=== PATIENT | female | born 1950 | race African-American/Black ===

== ENCOUNTER 2018-05-22 06:54 | Day surgery (SDC) | payer MEDICARE ==
[~2018-05-22 06:54] MED LIST: CEFAZOLIN 2 Gram 2 GM/50 ML BAG IVPB ONE; CELECOXIB 100 MG CAPSULE PO ONE; FAMOTIDINE 20MG TABLET PO ONE; MECLIZINE 25 MG TABLET PO ONE; METOCLOPRAMIDE 10 MG TABLET PO ONE; VANCOMYCIN HCL 1,000 MG in DEXTROSE 5 % IN WATER 250 ML IVPB ONE
[2018-05-22] MEDS ORDERED: BUPIVACAINE 0.5% W/EPI MPF 30 ML VIAL IVP ONE (06:55)
[2018-05-22] MEDS ORDERED: TRANEXAMIC ACID 1,000 MG/10 ML ML IV ONE (06:55)
[2018-05-22] MEDS ORDERED: ONDANSETRON HCL IV 4 MG/2 ML VIAL IVP ONE (06:55)
[2018-05-22] MEDS ORDERED: HYDROMORPHONE HCL 2 MG/ML VIAL IV ONE ×2 (06:55)
[2018-05-22] MEDS ORDERED: DEXAMETHASONE 4 MG/ML 1ML VIAL IVP ONE ×2 (06:55)
[2018-05-22] MEDS ORDERED: PROPOFOL 10 MG/ML VIAL IV ONE (06:55)
[2018-05-22] MEDS ORDERED: LABETALOL HCL 5MG/ML, 20ML VIAL IV ONE (06:55)
[2018-05-22] MEDS ORDERED: DESFLURANE 240 ML BTL INH ONE (06:55)
[2018-05-22] MEDS ORDERED: ROPIVACAINE HCL (NAROPIN) /PF 5MG/ML 20ML VIAL IV ONE (06:55)
[2018-05-22] MEDS ORDERED: FENTANYL PF 100MCG/2ML VIAL IV ONE (06:55)
[2018-05-22] MEDS ORDERED: HYDRALAZINE 20MG/ML VIAL IV ONE (06:55)
[2018-05-22] MEDS ORDERED: MIDAZOLAM HCL 2MG/2ML VIAL IV ONE (06:55)
[2018-05-22 07:48] LABS: ABO GROUP O; ANTIBODY SCREEN NEGATIVE (NEGATIVE); RH TYPE POSITIVE
[2018-05-22] MEDS ORDERED: ACETAMINOPHEN W/ CODEINE 300MG/60MG TABLET PO PRN ×2 (11:46)
[2018-05-22] MEDS ORDERED: KETOROLAC 30 MG/ML VIAL IVP PRN (11:46)
[2018-05-22] MEDS ORDERED: HYDROCODONE/APAP 10/325 TABLET PO PRN (11:46)
[2018-05-22] MEDS ORDERED: ACETAMINOPHEN 325 MG TAB PO PRN (11:46)
[2018-05-22] MEDS ORDERED: OXYCODONE HCL 5 MG TABLET PO PRN (11:46)
[2018-05-22] MEDS ORDERED: NALOXONE 0.4 MG/1 ML VIAL IVP PRN (11:46)
[2018-05-22] MEDS ORDERED: DIPHENHYDRAMINE HCL 25 MG CAPSULE PO PRN (11:46)
[2018-05-22] MEDS ORDERED: BISACODYL 10 MG SUPP RC PRN (11:46)
[2018-05-22] MEDS ORDERED: MAGNESIUM HYDROXIDE 30 ML UDC PO PRN (11:46)
[2018-05-22] MEDS ORDERED: AL HYDROX/MAG HYDROX 30ML UD PO PRN (11:46)
[2018-05-22] MEDS ORDERED: TRAMADOL HCL 50 MG TABLET PO PRN (11:46)
[2018-05-22] MEDS ORDERED: CEFTRIAXONE 1GM/50ML BAG 1 GM/50 ML BAG IVPB SCH (15:00)
--- NOTE | 2018-05-22 15:04 | Rehab Evaluation ---
Patient Information - Patient Information Diagnosis: L knee OA Ordered Treatment: PT Evaluate and Treat Status: Initial Evaluation Surgery: Yes (L TKA) Date of Surgery: 05/22/18 Past Medical/Surgical Hx: PAST MEDICAL/SURGICAL HISTORY Past Surgical History right shoulder RTKA 15 yrs ago hyst lumbar back sx cage screws c scopes right breast lumpectomy and axillary dissection several foot sx's bilat breast reduction PMH - Respiratory Hx Respiratory Disorders Yes Hx Bronchitis Yes: Hx Pneumonia Yes: 2001 PMH - Cardiovascular Hx Cardiovascular Disorders Yes Hx Hypertension Yes: on meds good control Hx Irregular Heartbeat Yes: 2001 Hx Heart Murmur Yes: leaky valve sees cardio every year Exercise Tolerance Good Hx of Migraines Yes: caused by dehydration, weather changes PMH - Neuro Hx Neurological Disorders Yes PMH - GI Hx Gastrointestinal Disorders Yes Hx Gastroesophageal Reflux Yes: on meds with good control PMH - Hx Genitourinary Disorders No PMH - Endocrine Hx Endocrine Disorders Yes Hx Thyroid Disease Yes PMH - Musculoskeletal Hx Musculoskeletal Disorders Yes Hx Arthritis Yes: everywhere PMH - Psych Hx Psychiatric Problems No PMH - Hematology/Oncology Hx Hematology/Oncology Yes Disorders Hx Anemia Yes: on and off Hx Bruising Yes: bruises easily Hx Cancer Yes: breast right axillary dissection 1993 Hx Chemotherapy Yes Hx Radiation Therapy Yes Hx Blood Transfusion Reaction No Premorbid Status: Detail (Patient was previously IND with all mobility and transfers.) Social History: Detail (Patient lives in a 1 story home with her spouse. There are 2 stairs to enter the home with no hand rails. The patient has a walk in shower with one grab bar, and an elevated toilet. The patient owns a front wheeled walker, a cane, and a shower bench.) Precautions: [place], Fall, Other (WBAT on L LE.) - Time With Patient Total Time Spent With Patient (Min): 30 Treatment Procedures: Detail (Initial evaluation, gait training, exercise education.) Subjective Information - Subjective Information Per Patient (Patient was lying supine in bed upon arrival with no complaints of pain.) Objective Data - Pain Pain Present: No - Mental Status Patient Orientation: Oriented x3 - Visual Perception Appears within normal limits for therapeutic activities - ROM Not within normal limits (Patient L knee ROM is limited due to status post surgery.) - Strength/Tone Not within normal limits (Patients strength was functional during ambulation. Patient has limited L knee strength due to status post surgery.) - Bed Mobility Independent (Patient was IND with supine to and from sit transfer.) - Transfers Independent (Patient was IND with sit to stand transfer. Patient required verbal cues for hand placement during sit to stand.) - Balance Balance Sitting: Good Balance Standing: Good - Sensation Intact - Gait Detail (Patient ambulated approx. 200' using a front wheeled walker and supervision for safety. WBAT on L LE.) Therapy Assessment - Therapy Assessment Detail (Evaluation complexity low due to stable condition. Patient was IND with all mobility and transfers. Feel patient will progress well with continued PT. Patient was left lying supine in bed with call light in reach.) Patient Education - Patient Education Teaching Topic: Exercise/Activity (ankle pumps, heel slides, SLR, glut sets, quad sets, and hamstring sets.) Response: Return Demonstration, Verbalize Understanding Teaching Method: Discussion, Demonstration Teaching Recipient: Patient Barriers To Learning: Age Related Problem List - Problem List Physical Therapy Problem List: Detail (1) L knee ROM 2) L knee strength) Goals - Goals Physical Therapy Goals: 1) Patient will ambulate a flight of 3 stairs using a folded walker, hand rail, and supervision with proper technique. Prognosis - Prognosis Good Plan - Plan Physical Therapy Plan: Patient will be seen 1-2 more times to assess stair technique. Patient will then be discharged to home PT.
[2018-05-22] MEDS ORDERED: RANITIDINE HCL 150 MG TABLET PO PRN (15:16)
[2018-05-22] MEDS: ONDANSETRON 4 MG ODT TABLET SL PRN (15:19)
[2018-05-22] MEDS: POTASSIUM CHLORIDE/D5-0.9%NACL 20 MEQ/1,000 ML BAG IV SCH ×2 (15:19→22:36)
[2018-05-22] MEDS: LOSARTAN POTASSIUM 100 MG TABLET PO SCH (17:18)
[2018-05-22] MEDS: CEFAZOLIN 2 Gram 2 GM/50 ML BAG IVPB SCH (17:18)
[2018-05-22] MEDS: METOCLOPRAMIDE HCL 10 MG/2 ML VIAL IVP PRN (17:49)
[2018-05-22] MEDS: HYDROCODONE/APAP 10/325 TABLET PO PRN (20:52)
[2018-05-22] MEDS ORDERED: SIMVASTATIN 20 MG TABLET PO SCH (22:00)
[2018-05-22] MEDS ORDERED: PANTOPRAZOLE SODIUM 40 MG TABLET PO SCH (22:00)
[2018-05-22] MEDS ORDERED: ASPIRIN 81 MG TABEC PO SCH (22:00)
[2018-05-22] MEDS ORDERED: CALCIUM CARBONATE 500 MG TAB.CHEW PO PRN (22:17)
[2018-05-23] MEDS: FERROUS SULFATE 325 MG TAB PO SCH ×2 (00:13→11:31)
[2018-05-23] MEDS: DOCUSATE SODIUM 100 MG CAPSULE PO SCH ×2 (00:13→11:31)
[2018-05-23] MEDS: ONDANSETRON 4 MG ODT TABLET SL PRN ×3 (01:02→11:32)
[2018-05-23] MEDS: CEFAZOLIN 2 Gram 2 GM/50 ML BAG IVPB SCH ×2 (01:04→08:34)
[2018-05-23] MEDS: HYDROCODONE/APAP 10/325 TABLET PO PRN ×3 (02:43→11:35)
[2018-05-23 06:54] LABS: GRAN % 80.2 % (47-80); HEMATOCRIT 31.6 % (35.0-47.0); HEMOGLOBIN 9.9 gm/dl (11.6-16.0); LYMPH % 11.8 % (16-45); MEAN CELL VOLUME 96.6 fl (81-97); MEAN CORPUSCULAR HGB CONC 31.3 g/dl (32-36); PLATELET COUNT 303 K/uL (130-400); RED BLOOD COUNT 3.27 M/uL (3.80-5.40); RED CELL DISTRIBUTION WIDTH 13.1 % (11.5-14.5); WHITE BLOOD COUNT W/O DIFF 10.3 K/uL (4.2-12.2)
[2018-05-23 06:59] LABS: MEAN CORPUSCULAR HEMOGLOBIN 30.2 pg (27-33)
[2018-05-23] MEDS ORDERED: LEVOTHYROXINE SODIUM 25 MCG TABLET PO SCH (07:00)
[2018-05-23] MEDS: POTASSIUM CHLORIDE/D5-0.9%NACL 20 MEQ/1,000 ML BAG IV SCH (07:58)
[2018-05-23] MEDS: METOCLOPRAMIDE HCL 10 MG/2 ML VIAL IVP PRN (08:28)
[2018-05-23] MEDS ORDERED: RIVAROXABAN 10 MG TABLET PO SCH (10:00)
--- NOTE | 2018-05-23 11:23 | Physical Therapy Tx Note ---
Physical Therapy Tx Note - Treatment Note Tolerated: Good Total Time Spent With Patient: 15 Physical Therapy Tx Note: Detail (Patient has no complaints of L knee pain. Patient ambulated approx 100' using a front wheeled walker, and supervision for safety. Patient also ambulated a flight of 3 stairs using a folded walker, hand rail, and supervision for safety with proper technique. Patient was left up in chair with ice on and call light in reach.) Physical Therapy Problem List: Detail (1) L knee ROM 2) L knee strength) Physical Therapy Goals: 1) Patient will ambulate a flight of 3 stairs using a folded walker, hand rail, and supervision with proper technique. (Goal Met) Prognosis: Good Physical Therapy Plan: Patient has met all IP PT goals and will be discharged to home PT.
[2018-05-23] MEDS: LOSARTAN POTASSIUM 100 MG TABLET PO SCH (11:31)
--- NOTE | 2018-05-23 15:24 | Rehab Evaluation ---
Patient Information - Patient Information Diagnosis: L knee OA Ordered Treatment: OT Evaluate and Treat Status: Initial Evaluation Surgery: Yes (L TKA) Date of Surgery: 05/22/18 Past Medical/Surgical Hx: PAST MEDICAL/SURGICAL HISTORY Past Surgical History right shoulder RTKA 15 yrs ago hyst lumbar back sx cage screws c scopes right breast lumpectomy and axillary dissection several foot sx's bilat breast reduction PMH - Respiratory Hx Respiratory Disorders Yes Hx Bronchitis Yes: Hx Pneumonia Yes: 2001 PMH - Cardiovascular Hx Cardiovascular Disorders Yes Hx Hypertension Yes: on meds good control Hx Irregular Heartbeat Yes: 2001 Hx Heart Murmur Yes: leaky valve sees cardio every year Exercise Tolerance Good Hx of Migraines Yes: caused by dehydration, weather changes PMH - Neuro Hx Neurological Disorders Yes PMH - GI Hx Gastrointestinal Disorders Yes Hx Gastroesophageal Reflux Yes: on meds with good control PMH - Hx Genitourinary Disorders No PMH - Endocrine Hx Endocrine Disorders Yes Hx Thyroid Disease Yes PMH - Musculoskeletal Hx Musculoskeletal Disorders Yes Hx Arthritis Yes: everywhere PMH - Psych Hx Psychiatric Problems No PMH - Hematology/Oncology Hx Hematology/Oncology Yes Disorders Hx Anemia Yes: on and off Hx Bruising Yes: bruises easily Hx Cancer Yes: breast right axillary dissection 1993 Hx Chemotherapy Yes Hx Radiation Therapy Yes Hx Blood Transfusion Reaction No Premorbid Status: Detail (Patient was previously IND with all mobility and transfers.) Social History: Detail (Patient lives in a 1 story home with her spouse. There are 2 stairs to enter the home with no hand rails. The patient has a walk in shower with one grab bar and shower seat, and an elevated toilet with a riser. The patient owns a front wheeled walker, a cane, a long shoe horn and a shower bench.) Precautions: [place], Fall, Other (WBAT on L LE.) - Time With Patient Total Time Spent With Patient (Min): 35 Treatment Procedures: Detail (OT eval low complexity) Subjective Information - Subjective Information Per Patient Objective Data - Pain Pain Present: Yes (11/04) - Mental Status Patient Orientation: Oriented x3 - Visual Perception Appears within normal limits for therapeutic activities - ROM Within normal limits (Pt reports [place] UE AROM WNL) - Strength/Tone Within normal limits (Pt reports [place] UE strength WNL although she had a rotator cuff repair in right UE) - Coordination Appears within normal limits for therapeutic activities - Bed Mobility Independent (Ind with supine to sit) - Transfers Independent (Ind with sit to stand from EOB and chair.) - Balance Balance Sitting: Good Balance Standing: Good - Sensation Intact - Gait Detail (Pt ambulating in room with 2 wheeled walker Indly.) - ADL's/IADL's Detail (Pt educated and able to demonstrate Ind with modified LE dressing techniques including underwear and pants. She had difficulty with slip on shoe on left due to taz wrap and edema. She reports spouse will assist if needed. Pt educated re: kitchen and bathroom safety and modifications, she was able to verbalize understanding.) Therapy Assessment - Therapy Assessment Detail (Pt is Ind with LE ADLs and has assist from spouse as needed.) Problem List - Problem List Physical Therapy Problem List: Detail (1) L knee ROM 2) L knee strength) Occupational Therapy Problem List: Detail (No current IP OT problems identified. ) Goals - Goals Physical Therapy Goals: 1) Patient will ambulate a flight of 3 stairs using a folded walker, hand rail, and supervision with proper technique. (Goal Met) Occupational Therapy Goals: No current IP OT goals identified. Prognosis - Prognosis Good Plan - Plan Physical Therapy Plan: Patient has met all IP PT goals and will be discharged to home PT. Occupational Therapy Plan: No further IP OT recommended. Thank you for this referral.
--- NOTE | 2018-05-26 09:45 | Operative Note ---
DATE: PREOPERATIVE DIAGNOSIS: END-STAGE ARTHROSIS OF THE LEFT KNEE. POSTOPERATIVE DIAGNOSIS: END-STAGE ARTHROSIS OF THE LEFT KNEE. PROCEDURE: CEMENTED LEFT TOTAL KNEE ARTHROPLASTY USING RENDON & NEPHEW RANDI II COMPONENTS, WITH A SIZE 4 OXINIUM FEMUR, A SIZE 4 STEMMED TIBIAL BASEPLATE, AN 11 MM LIPPED HIGHLY CROSSLINKED TIBIAL INSERT, AND A 32 MM ALL-PLASTIC PATELLA. STAFF SURGEON: DAKSHA ZAMORANO M.D. ANESTHESIA: GENERAL. PREPARATION: CHLORAPREP. INDIVIDUAL CONSIDERATIONS: NONE. PROCEDURE: The patient was taken to the Operating Room and placed supine on the operating table. She had a successful induction of a general anesthetic. We did attempt a spinal but because of her previous spine fusion, she was unable to have a spinal anesthetic. Her left knee was prepped then draped in the usual fashion. The limb was elevated and the tourniquet was inflated to 215 mmHg. The patient had a midline approach to the knee. Sharp dissection carried down through the skin and subcutaneous tissue. Small veins were coagulated with a Bovie. A medial arthrotomy was performed. The patella was everted and the knee was flexed. The patient had exposed bone int he medial, lateral, and patellofemoral compartments with large cartilage loss. The fat pad was resected, the ACL was sacrificed, provisional anterior meniscectomies were performed, and the capsule was released from the medial proximal tibia. The initial femoral river pilot hole was then made free hand. The intramedullary femoral cutting jig was placed. It was cut in 7.0 degrees of valgus and adjusted for rotation and secured with pins for a 10 mm resection. The initial transverse cut was then made. Skin guide was placed in the anterior and posterior river pilot holes. It was originally found that a size 5 but that seemed to overstuff so I ended up translating it inferiorly 2 mm and then I was easily able to fit a size 4. The anterior and posterior cuts followed by chamfer cuts were made, osteophytes were removed, and a size 4 trial was placed and found to fit well. The tibia was brought forward and the remainder of the meniscal remnants were removed with a Bovie. The extraarticular tibial cutting jig was then placed. It was cut in neutral with a 3-degree AP slope. Care was taken to adjust for rotation and flexion using the extraarticular alignment guide and bony landmarks. It was set for a 9 mm resection, keyed off the high lateral side and secured with pins. When cutting the tibia, care was taken to preserve the PCL insertion on the tibia. Osteophytes removed and I could fit a size 4. This was secured with pins after adjusting for rotation. With an 11 mm trial and the femoral trial, there was excellent motion and stability. Ligamentous balance, rotation, and alignment were thought to be normal. The femoral river pilot holes were impacted and the tibial keel stamp were impacted and these trial components were removed. The patient had a marginal patella but I felt we had enough bone to relieve 12- 13 mm; it measured just about 20-21 mm. This was cut freehand and then I was easily able to place a 32 patella and the three river pilot holes were drilled. The tourniquet was let down briefly to get bleeders posteriorly and then placed it back up again. The knee was then copiously irrigated out with pulsatile Betadine and saline to remove any visual or palpable debris. Bony surfaces were then dried. A size 4 stemmed tibial baseplate was cemented into place followed by impaction of the 11 mm Highly CrossLink lipped tibial insert followed by cementing in a size 4 Oxinium femur followed by cementing in the 32 mm patella. Implant surfaces were compressed, excess cement was removed and after the cement had set, there was excellent motion and stability. Ligamentous balance, rotation, alignment, and patellofemoral tracking were normal. No lateral release was required. Again, thorough irrigation. The tourniquet was again let down and hemostasis was obtained with a Bovie. I then infiltrated the skin and subcutaneous tissue, periosteum with 30 mL of 0.5% Marcaine with Epinephrine. The capsule was then closed with a running #2 Quill. The subcut was closed in layers with running #0 Quill. The skin was closed with fausto. The patient did receive 1 gram of Tranexamic Acid IV preoperatively. I mixed 1 gram of Tranexamic acid with 30 mL of saline and injected it into the knee through a sterile 18-gauge needle and a sterile Bulkee compressive KENDELL-type dressing was applied. The patient tolerated the procedure well. Needle and sponge counts were correct, estimated blood loss was minimal, and she was taken back to Recovery in good condition. There were no complications. JOB NUMBER: [id number] [facility]
--- NOTE | 2018-05-26 17:58 | Discharge Summary ---
DATE OF ADMISSION: 05/22/2018. DATE OF DISCHARGE: 05/23/2018. DATE OF SURGERY: 05/22/2018. HISTORY: Dafne is a delightful 68-year-old female who presents with endstage arthrosis of her left knee. She was admitted after left total knee arthroplasty. Postoperatively she did well. Her hospital course was unremarkable. FINAL DIAGNOSIS AND PRIMARY DIAGNOSIS: Endstage arthrosis of the left knee. SECONDARY DIAGNOSIS: Operative blood loss anemia. LABORATORY VALUES: Her discharge hemoglobin was 9.9. DISCHARGE CONDITION: Good. PLAN: The plan is to discharge her home in the care of her family. She will be given Xarelto followed by aspirin for deep venous thrombosis prophylaxis. She will be given [place] for pain. The visiting nurse will remove her sutures in two weeks. She will follow up in my office in four weeks. JOB NUMBER: [id number] cc: Ashutosh Gan M.D. JUANY
== END 2018-05-23 14:50 | disposition home or self-care (01) ==
LOC: UNDOADMIN 06:54 → SUR 06:54 → MEDSURG 06:54 → SUR 14:38 → MEDSURG 14:38 → SUR 05-23 14:50 → UNDODISIN 05-23 14:50
PROVIDERS: ATTEND Orthopaedic Surgery
DX: M17.12 Unilateral primary osteoarthritis, left knee (principal); I10 Essential (primary) hypertension; E78.00 Pure hypercholesterolemia, unspecified
CPT/HCPCS: 76942; 85025; 86850; 86900; 86901; J0696; J2405; J2765; J3480; J7060